=== PATIENT | female | born 1985 | race Caucasian/White ===

== ENCOUNTER 2018-09-02 14:10 | Emergency (ER) | payer OTHER ==
--- NOTE | 2018-09-02 15:03 | EDPHY ---
H & P Time Seen by Provider: 09/02/18 14:44 HPI/ROS: CHIEF COMPLAINT: Left leg pain HISTORY OF PRESENT ILLNESS: 33-year-old woman presents with pain behind her left knee starting Saturday night 2 days ago. She had a history of which she tells me is posterior tibial tendonitis in November when she lived in [place] and was treated with wearing different shoes and some stretching. This feels different. Pain is located proximally in the knee is intermittent and sharp, does not radiate, not associated with any recent injury or trauma. No decrease in range of motion of the knee and no foot or ankle pain. No chest pain or shortness of breath. REVIEW OF SYSTEMS: Or chills. No skin changes. PAST MEDICAL HISTORY: Thyroid, Jasper's Social history: Primary care is [facility] General Appearance: Alert and conversant, cooperative. Alert and ambulatory. Slight tenderness behind the left proximal calf. Normal range of motion of the left knee. No redness or warmth to palpation over the area of pain. Normal motor sensory and vascular in the foot. Compartments are soft in the thigh and lower leg. No bony tenderness in the lower leg. Emergency Department course/MDM: Doubt cellulitis, fracture, septic joint, compartment syndrome, arterial occlusion. More likely to be muscular or inflammatory, will get ultrasound to rule out DVT , if negative will treat for most likely as above. 1533: Ultrasound negative for DVT per Dr. Dao. Discussed with patient. Smoking Status: Former smoker Constitutional: Initial Vital Signs Temperature (C) 36.5 C 09/02/18 14:16 Heart Rate 61 09/02/18 14:16 Respiratory Rate 17 09/02/18 14:16 Blood Pressure 137/98 H 09/02/18 14:16 O2 Sat (%) 96 09/02/18 14:16 O2 Delivery Mode Room Air Allergies/Adverse Reactions: No Known Allergies Allergy (Unverified 09/02/18 14:16) Home Medications: Medication Instructions Recorded Levothyroxine 09/02/18 Medical Decision Making - Diagnostics Imaging Results: Imaging Impressions Extremity Venous Study 09/02/18 14:53 Impression: Negative for left lower extremity DVT within the limitations of this examination. Findings and recommendations discussed with AGATHA FERNANDEZ at 1532 hour, 2017. Departure - Departure Disposition: Home, Routine, Self-Care Clinical Impression: Leg pain, left Condition: Good Instructions: Leg Pain (ED) Additional Instructions: Ultrasound negative for blood clot. If you still have symptoms in a week the ultrasound should be repeated. Referrals: Vance Crespo MD [Medical Doctor] - As per Instructions NONE *PRIMARY CARE P,. [Primary Care Provider] - As per Instructions ([facility])
[2018-09-02 15:42] VITALS: BP 147/94
== END 2018-09-02 15:42 | disposition home or self-care (01) ==
DX: M79.605 Pain in left leg (principal)